=== PATIENT | male | born 1965 | race Caucasian/White ===

== ENCOUNTER 2017-08-06 15:00 | Emergency (ER) | payer SELFPAY ==
[~2017-08-06] VITALS: Ht 381 cm; Wt 62.7 kg
[2017-08-06] MEDS ORDERED: NAPROXEN500 MG PO (16:16)
[2017-08-06 16:34] VITALS: BP 147/87
== END 2017-08-06 16:34 | disposition home or self-care (01) ==
LOC: EME 15:00
DX: M26.601 Right temporomandibular joint disorder, unspecified (principal)
CPT/HCPCS: 70110; 99281; 99284